=== PATIENT | female | born 1995 | race Caucasian/White ===

== ENCOUNTER 2016-12-10 23:07 | Emergency (ER) | payer OTHER ==
[2016-12-10 23:25] LABS: URINE SOURCE CLEAN CATCH
[2016-12-10 23:27] LABS: URINE APPEARANCE HAZY; URINE BILIRUBIN NEG (NEG); URINE BLOOD TRACE-INTACT (NEG); URINE COLOR YELLOW; URINE GLUCOSE NEG (NORM); URINE KETONE NEG (NEG); URINE LEUKOCYTE ESTERASE 1+ (NEG); URINE NITRATE NEG (NEG); URINE PH 5.5 (5-8); URINE PROTEIN NEG (NEG); URINE SPECIFIC GRAVITY 1.025 (1.003-1.035); URINE UROBILINOGEN 0.2 MG/DL (NORM)
[2016-12-10 23:28] LABS: MICRO INDICATED? YES
[2016-12-10 23:29] LABS: CULTURE INDICATED? YES; URINE BACTERIA 1+ (NEG); URINE MUCUS PRESENT; URINE SQUAMOUS EPITHELIAL CELL OCCAS /[HPF]
[2016-12-13 01:12] LABS: CHLAMYDIA TRACH Not Detected (Not Detected); N GONOR Not Detected (Not Detected)
== END 2016-12-11 01:38 | disposition home or self-care (01) ==
LOC: SED 23:07
PROVIDERS: Emergency Medicine; Nurse Practitioner
DX: N89.8 Other specified noninflammatory disorders of vagina (principal); R30.0 Dysuria; F17.210 Nicotine dependence, cigarettes, uncomplicated
CPT/HCPCS: 81003; 84703; 87086; 87210; 87491; 87591; 87808; 87905; 96372; 99283; J0696

== ENCOUNTER 2016-12-12 23:40 | Emergency (ER) | payer OTHER ==
--- NOTE | ~2016-12-12 | CT71 ---
[facility] A Service of [facility] RADIOLOGY TEXT RESULTS PATIENT: GERTRUDE MEADOWS LOCATION: SED : 95 UNIT #: [id number] AGE: [address]: Jhon Potter PAC SEX: F ORDER DR: [id number] [place] [id number] E MR#: [id number] Acc #: [id number] NAME: GERTRUDE MEADOWS : 1995 SEX: F STUDY DATE/TIME: 12/13/2016 0:29 UNIT: SED ROOM: STUDY DESCRIPTION: CT Head Wo Contrast Attending Physician: Jhon Potter P.A.-C. Ordering Physician: Jhon Potter P.A.-C. MEDICAL IMAGING REPORT This report is preliminary unless electronic signature is present. EXAM CT head without contrast INDICATION Migraine headache for the past [address] head. This CT exam was performed with one or more of the following radiation dose reduction techniques: automatic exposure control, adjustment of mA and/or kV according to patient size, and iterative reconstruction. COMPARISON None. FINDINGS No acute hemorrhage, abnormal mass effect, extraaxial fluid collection or hydrocephalus. No depressed calvarial fracture. The paranasal sinuses and mastoid air cells are clear. IMPRESSION No acute intracranial findings. Dictated by... Emiliano Orellana M.D. THIS IS AN ELECTRONICALLY VERIFIED REPORT Emiliano Orellana M.D. at 12/13/2016 10:27 PM [facility] A Service of [facility] RADIOLOGY TEXT RESULTS PATIENT: GERTRUDE MEADOWS LOCATION: SED : 95 UNIT #: [id number] AGE: [address]: Jhon Potter PAC SEX: F ORDER DR: Milad TD: 12/13/2016 02:32 JOB #: [id number] MEDICAL IMAGING REPORT Page 1 of 1
== END 2016-12-13 01:36 | disposition home or self-care (01) ==
LOC: SED 23:40
DX: R51 Headache (principal)
CPT/HCPCS: 70450; 96372; 99284; J1885